=== PATIENT | male | born 1960 | race Caucasian/White ===

== ENCOUNTER → 2023-11-27 12:00 | Outpatient (REF) | payer MEDICARE, BC, SELFPAY | LOC: DHSLP 12:00 | PROVIDERS: ATTENDING PHYSICIAN Internal Medicine Critical Care Medicine; FAMILY PHYSICIAN Family Medicine | DX: G47.33 Obstructive sleep apnea (adult) (pediatric) (principal) | CPT/HCPCS: 95800 ==

== ENCOUNTER → 2024-01-08 14:35 | Outpatient (REF) | payer MEDICARE, BC, SELFPAY | LOC: DHCBC MAIN 14:35 | PROVIDERS: ATTENDING PHYSICIAN Internal Medicine Cardiovascular Disease; FAMILY PHYSICIAN Family Medicine | DX: I48.0 Paroxysmal atrial fibrillation (principal); I35.1 Nonrheumatic aortic (valve) insufficiency | CPT/HCPCS: 93306 ==

== ENCOUNTER 2024-09-16 09:53 | Day surgery (SDC) | payer MEDICARE, BC, SELFPAY ==
[2024-09-16 10:22] VITALS: BP 158/69
[2024-09-16 10:25] VITALS: BP 158/69
[2024-09-16 10:54] VITALS: BMI 35.9
--- NOTE | 2024-09-16 12:26 | ITS.CL.IMPLP ---
[facility] [employer] - Implant Loop
Implant Loop
Procedure Report:
Date of Procedure: September 16, 2024.
Procedure: Insertable Loop Recorder Explant.
Indication: Loop at the end of service.
Performing physician: Marques West MD, [facility].
Explant: [employer] LINQ; Serial# [id number] (implanted 10/12/2020).
Technique: A time out was performed per protocol. The patient was prepped and draped in the usual fashion. Anesthesia was administered by the anesthesia staff. Local anesthetic was applied to the left prepectoral subcutaneous tissue. An incision
was made over the superior aspect of the device. Dissection was carried to the capsule. The capsule was entered. The old device was explanted. The pocket appeared normal. Hemostasis was excellent. The pocket was irrigated saline. The incision was
closed with 4-0 Monocryl suture. The skin was closed with steri-strips. The estimated blood loss was less than 0.5 mL. There were no complications. No fluoroscopy was used.
Conclusion: Uncomplicated insertable loop explantation.
Recommendation: Routine incision care.
cc: Sree Lockhart MD.
[2024-09-16 12:32] VITALS: BP 119/51
[2024-09-16 12:47] VITALS: BP 120/54
[2024-09-16 13:02] VITALS: BP 129/44
[2024-09-16 13:17] VITALS: BP 119/53
== END 2024-09-16 13:27 | disposition home or self-care (01) ==
LOC: CATH 09:53
PROVIDERS: ATTENDING PHYSICIAN Internal Medicine Cardiovascular Disease; FAMILY PHYSICIAN Physician Assistant Medical
DX: Z09 Encounter for follow-up examination after completed treatment for conditions other than malignant neoplasm (principal); I48.91 Unspecified atrial fibrillation; J44.9 Chronic obstructive pulmonary disease, unspecified; Z87.891 Personal history of nicotine dependence; Z85.118 Personal history of other malignant neoplasm of bronchus and lung; Z79.01 Long term (current) use of anticoagulants
CPT/HCPCS: 33286